=== PATIENT | female | born 1945 | race Two or more races ===

== ENCOUNTER 2020-09-29 10:00 | Inpatient (IN) | payer OTHER ==
[~2020-09-29] VITALS: Ht 157.5 cm; Wt 70.8 kg
[2020-09-29] MEDS ORDERED: GABAPENTIN800 M1 PO (13:31)
[2020-09-29] MEDS ORDERED: DIOVAN HCT 1601 EAC1 PO (13:31)
[2020-09-29] MEDS ORDERED: SYNTHROID50 MCG PO (13:31)
[2020-09-29] MEDS ORDERED: PEPCID AC20 MG PO (13:32)
[2020-09-29] MEDS ORDERED: PROBIOTIC1 EAC2 PO (13:32)
[2020-10-06] MEDS ORDERED: MAGNESIUM OXID500 MG (11:42)
[2020-10-06] MEDS ORDERED: CLOTRIMAZOLE-BE15 G1 (11:42)
[2020-10-06] MEDS ORDERED: SSD25 GM (11:43)
== END 2020-10-09 15:09 | disposition home or self-care (01) | DRG 330 ==
LOC: ADM 10:00 → EDSTATUS 10:00 → SURH 10-06 07:00 → O/R 10-06 07:05 → SURH 10-06 10:00
PROVIDERS: Urology; ADMIT Colon & Rectal Surgery; ATTEND Colon & Rectal Surgery
PROC: 0T788DZ Dilation of Bilateral Ureters with Intraluminal Device, Via Natural or Artificial Opening Endoscopic (ICD-10-PCS; 2020-10-06)
PROC: 3E0F7SF Introduction of Other Gas into Respiratory Tract, Via Natural or Artificial Opening (ICD-10-PCS; 2020-10-06)
PROC: 0DTP4ZZ Resection of Rectum, Percutaneous Endoscopic Approach (ICD-10-PCS; principal; 2020-10-06 07:00)
PROC: 0DTN4ZZ Resection of Sigmoid Colon, Percutaneous Endoscopic Approach (ICD-10-PCS; 2020-10-06 07:00)
DX: K57.32 Diverticulitis of large intestine without perforation or abscess without bleeding (principal); K56.51 Intestinal adhesions [bands], with partial obstruction; N82.3 Fistula of vagina to large intestine; K62.1 Rectal polyp; Z20.822 Contact with and (suspected) exposure to COVID-19

== ENCOUNTER 2020-09-29 11:18 | Outpatient (CLI) | payer OTHER ==
[2020-09-29] MEDS ORDERED: GABAPENTIN800 M1 PO (13:31)
[2020-09-29] MEDS ORDERED: DIOVAN HCT 1601 EAC1 PO (13:31)
[2020-09-29] MEDS ORDERED: SYNTHROID50 MCG PO (13:31)
[2020-09-29] MEDS ORDERED: PROBIOTIC1 EAC2 PO (13:32)
[2020-09-29] MEDS ORDERED: PEPCID AC20 MG PO (13:32)
== END 2020-09-29 12:49 | disposition home or self-care (01) ==
LOC: LAB 11:18 → RAD 11:18 → LAB 12:49
PROVIDERS: ATTEND Colon & Rectal Surgery
DX: K62.5 Hemorrhage of anus and rectum (principal); N39.0 Urinary tract infection, site not specified; K59.00 Constipation, unspecified; D59.8 Other acquired hemolytic anemias; Z11.59 Encounter for screening for other viral diseases; Z20.828 Contact with and (suspected) exposure to other viral communicable diseases; D68.9 Coagulation defect, unspecified; K57.32 Diverticulitis of large intestine without perforation or abscess without bleeding

== ENCOUNTER 2020-10-04 06:52 | Day surgery (SDC) | payer OTHER ==
[~2020-10-04 06:52] MED LIST: DIOVAN HCT 1601 EAC1 PO; GABAPENTIN800 M1 PO; PEPCID AC20 MG PO; PROBIOTIC1 EAC2 PO; SYNTHROID50 MCG PO
== END 2020-10-04 10:50 | disposition home or self-care (01) ==
LOC: AMB-ENDOS 06:52
PROVIDERS: ATTEND Colon & Rectal Surgery
DX: K62.89 Other specified diseases of anus and rectum (principal); K64.8 Other hemorrhoids; Z20.822 Contact with and (suspected) exposure to COVID-19; Z12.11 Encounter for screening for malignant neoplasm of colon